=== PATIENT | female | born 1985 | race African-American/Black ===

== ENCOUNTER → 2018-08-24 | Day surgery (SDC) | payer OTHER ==
--- NOTE | 2018-08-27 17:46 | PATH ---
Surgical Pathology Report Patient Name: GABY ARROYO [facility]. Rec. #: [id number] /Age/Gender: 1985 (Age: 32) / F Account: [id number] Location: Taken: 08/24/2018 Received: 08/24/2018 Reported: 08/27/2018 Physicians: Edmund Hernandez M.D. Specimen(s) Received LEFT BREAST CORE BIOPSY 4N1 Clinical History Palpable mass Ultrasound findings: Suspicious Final Diagnosis BREAST, LEFT, 4:00, 1 CM FN, CORE BIOPSY: BENIGN BREAST PARENCHYMA WITH STROMAL FIBROSIS, RARE DILATED GLAND, MILD PERIDUCTAL CHRONIC INFLAMMATION, AND FOCAL USUAL DUCTAL HYPERPLASIA. Comment: Deeper levels have been examined. Electronically Signed Mine Corado M.D. Gross Description Received in formalin labeled "left breast biopsy 4:00, 1 cmfn," are 4 smith-yellow, cylindrical portions of fibroadipose tissue ranging from 0.5-1.4 cm in length and averaging 0.2 cm in diameter. The specimen is submitted in toto in one cassette. Time to formalin fixation: Less than one minute Total formalin fixation time: Approximately 7 hours. /08/24/2018 saudi/08/24/2018
--- NOTE | 2018-08-28 10:12 | OP ---
DATE OF OPERATION: 08/24/2018 PREOPERATIVE DIAGNOSIS: Left breast mass, 4 o'clock, 1 cm from the nipple. POSTOPERATIVE DIAGNOSIS: Left breast mass, 4 o'clock, 1 cm from the nipple. PROCEDURE: Left breast ultrasound-guided core biopsy with clip placement. ANESTHESIA: Local. ATTENDING SURGEON: Edmund Hernandez MD ESTIMATED BLOOD LOSS: Minimal. COMPLICATIONS: None. DESCRIPTION OF PROCEDURE: Patient was made aware of the risks and benefits of the procedure and consented. She was placed in the supine position. Under sterile conditions with 1% Lidocaine for local anesthesia, a small cate was made in the skin. Using a 10-guage suction biopsy device via lateral approach under ultrasound guidance, multiple cores were obtained and submitted to Pathology. Likewise, under ultrasound guidance, a U-shaped clip was placed into the biopsy region. Steri-Strip and sterile bandage were applied. We will contact her with the results. EDMUND HERNANDEZ M.D. [id number]
== END | disposition home or self-care (01) ==
LOC: FRADUS-SUR 10:25
PROVIDERS: ATTEND Surgery Surgical Oncology
PROC: 0HBU3ZX Excision of Left Breast, Percutaneous Approach, Diagnostic (ICD-10-PCS; principal; 2018-08-24)
DX: N60.32 Fibrosclerosis of left breast (principal); N60.82 Other benign mammary dysplasias of left breast; N64.89 Other specified disorders of breast; N63.23 Unspecified lump in the left breast, lower outer quadrant
CPT/HCPCS: 19083; 87899; 88305-TC; A4648